=== PATIENT | female | born 1955 ===

== ENCOUNTER 2022-06-02 18:02 | Outpatient (REF) | payer MEDICARE, SELFPAY ==
[2022-06-02 20:59] LABS: Bacteria Moderate HPF (Negative)
[2022-06-02 21:00] LABS: Mucus Negative (Negative)
[2022-06-02 21:01] LABS: C & S Indicated? C&S Done As Ordered; WBC >50 HPF (0-5)
[2022-06-02 21:02] LABS: Crystals Few Calcium Oxalate HPF (Negative)
== END 2022-06-02 18:03 | disposition home or self-care (01) ==
LOC: LBN 18:02
PROVIDERS: Visit Provider Nurse Practitioner Family
DX: N39.0 Urinary tract infection, site not specified (principal)
CPT/HCPCS: 87077; 81015; 87086; 87186